=== PATIENT | female | born 2005 | race Two or more races ===

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

== ENCOUNTER 2025-03-06 21:15 | Emergency (ER) | payer MEDICAID, OTHER ==
[~2025-03-06] VITALS: Ht 172.7 cm; Wt 54.4 kg
[~2025-03-06 21:15] MED LIST: ACET-2030 PO; BENZ-13 PO; IBUP-1490 PO
[2025-03-06 23:10] VITALS: BP 113/78; TEMP 98.9; O2SAT 100
== END 2025-03-06 23:10 | disposition home or self-care (01) ==
LOC: ER 21:19
DX: J06.9 Acute upper respiratory infection, unspecified (principal); B97.89 Other viral agents as the cause of diseases classified elsewhere; Z20.822 Contact with and (suspected) exposure to COVID-19
CPT/HCPCS: 86403-TC; 87070-TC